=== PATIENT | male | born 1955 ===

== ENCOUNTER 2018-02-09 06:45 | Emergency (ER) | payer OTHER ==
[2018-02-09 07:00] VITALS: BMI 19.9
[2018-02-09 07:01] VITALS: TEMP 98.1; O2SAT 100
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
[2018-02-09 11:07] VITALS: BP 110/70; PULSE 77; RESP 17
== END 2018-02-09 09:50 | disposition home or self-care (01) ==
LOC: H.ER 06:45
DX: S19.9XXA Unspecified injury of neck, initial encounter (principal); S09.93XA Unspecified injury of face, initial encounter; Y04.0XXA Assault by unarmed brawl or fight, initial encounter; Y92.89 Other specified places as the place of occurrence of the external cause; F17.200 Nicotine dependence, unspecified, uncomplicated; Z88.0 Allergy status to penicillin

== ENCOUNTER 2018-06-07 00:24 | Emergency (ER) | payer SELFPAY ==
[2018-06-07 00:24] VITALS: BMI 19.9
[2018-06-07 00:58] VITALS: BP 135/75; PULSE 68; RESP 18; TEMP 97.7; O2SAT 100
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
== END 2018-06-07 04:07 | disposition home or self-care (01) ==
LOC: H.ER 00:24
DX: S13.4XXA Sprain of ligaments of cervical spine, initial encounter (principal); Z88.0 Allergy status to penicillin; V43.52XA Car driver injured in collision with other type car in traffic accident, initial encounter; Y99.0 Civilian activity done for income or pay; M50.30 Other cervical disc degeneration, unspecified cervical region